=== PATIENT | male | born 1960 | race Caucasian/White ===

== ENCOUNTER → 2018-09-10 | Outpatient (CLI) | payer BC ==
--- NOTE | 2018-09-11 08:26 | CT ---
CT CHEST FOR PULMONARY EMBOLISM. EXAMINATION TYPE: CT angio chest DATE OF EXAM: 09/10/2018 INDICATION: Thoracic aortic aneurysm, without rupture. CT DLP: 518.3 mGycm, Automated exposure control for dose reduction was used. CONTRAST: Patient injected with 100ml mL of Isovue 370. COMPARISON: 06/12/2017 TECHNIQUE: CT of the chest is performed on a spiral scan at 2 mm thick sections. Study is performed with intravenous contrast timed for evaluation for the aorta. This will limit additional portions of the evaluation. 3-D MIP images reconstructed by the technologist are reviewed on the computer in th e coronal and sagittal planes. Three-D reconstructed images are performed through the thoracic aorta and proximal abdominal aorta. FINDINGS: Portion of the thyroid within the [id number] is unremarkable. No dissection is evident within the ascending or descending thoracic aorta. The aortic root at the le evette of the valve is 3.8 cm. The aorta level of the main pulmonary artery is 4.3 cm. Aortic arch has a transverse dimension of 3.1 cm. The descending thoracic aorta tapers through its visualized course. At the level of the diaphragm AP dimension of the descending thoracic aorta is 2.7 cm. No mediastinal or hilar adenopathy enlarged by CT criteria is evident. The ascending aorta diameter at the level of the main pulmonary artery is 4.3 cm. The main pulmonary artery diameter at the bifur cation is 2.9 cm. There is a three-vessel arch. Lung windows are essentially clear. Couple of streak opacities within the dependent portion of the ri ght lung base likely related to some mild atelectasis or scarring present previously. Limited CT section through the upper abdomen are unremarkable. IMPRESSIONS: 1. Stable ascending thoracic aortic aneurysm measuring 4.3 cm.
== END | disposition home or self-care (01) ==
LOC: RADCTMAIN 16:42
PROVIDERS: ATTEND Internal Medicine Interventional Cardiology
DX: I71.2 Thoracic aortic aneurysm, without rupture (principal)
CPT/HCPCS: 71275; Q9967

== ENCOUNTER → 2021-08-17 | Outpatient (CLI) | payer BC ==
--- NOTE | 2021-08-17 10:17 | CT ---
EXAMINATION TYPE: CT angio chest DATE OF EXAM: 08/17/2021 COMPARISON: 09/10/2018 HISTORY: 61-year-old male I71.2, thoracic aneurysm TECHNIQUE: Contiguous axial scanning of the chest performed without and with IV Contrast, patient inj ected with 100 mL of Isovue 370. Coronal/sagittal reconstructions performed. 3-D reconstructions gene rated on a dedicated independent workstation. CT DLP: 721.6 mGycm Automated exposure control for dose reduction was used. FINDINGS: Heart normal size without pericardial effusion. Aortic root aneurysmal at 4.6 cm, unchanged. There is cardiac motion which may be increasing this zac ue artifactually. Ascending aorta 4.0 cm, unchanged. Proximal arch ectatic at 3.8 cm, unchanged. Conventional arch vessel branching anatomy. Upper descending thoracic aorta ectatic and 3.5 cm, unchanged. Mid descending thoracic aorta 2.8 cm. Descending thoracic aorta at the thoracoabdominal junction borderline ectatic and 2.5 cm, unchanged. Initial noncontrast images show no evidence for acute intramural hematoma. There is no evidence for a ortic dissection. Large caliber to the main right and left pulmonary arteries are 3.0 and 2.7 cm, respectively, suggest ing underlying pulmonary hypertension. No thoracic lymphadenopathy by CT size criteria. Strandy scarring in the lower lungs. Minimal emphysematous change suspected in the upper lungs. No co nsolidation or pleural effusion. Stable 6 mm peripheral right lower lobe pulmonary nodule compatible with a benign etiology. Tiny hiatal hernia. Low attenuation of the hepatic parenchyma in the upper abdomen suggesting fatty i nfiltration. Bones: [facility] within the visualized lower thoracic spine. IMPRESSION: 1. STABLE ANEURYSMAL THORACIC AORTA (ROOT 4.6 CM, ASCENDING 4.0 CM, UPPER DESCENDING 3.5 CM). 2. SOME SCATTERED STRANDY SCARRING IN THE LUNGS. THERE MAY BE MINIMAL EMPHYSEMATOUS CHANGE IN THE UPP ER LUNGS. FINDINGS SUGGEST PULMONARY ARTERIAL HYPERTENSION. 3. TINY HIATAL HERNIA AND FATTY INFILTRATION OF THE LIVER.
== END | disposition home or self-care (01) ==
LOC: RADCTMAIN 08:49
PROVIDERS: ATTEND Internal Medicine Interventional Cardiology
DX: I71.2 Thoracic aortic aneurysm, without rupture (principal); K44.9 Diaphragmatic hernia without obstruction or gangrene; K76.0 Fatty (change of) liver, not elsewhere classified; R91.8 Other nonspecific abnormal finding of lung field
CPT/HCPCS: 71275; Q9967

== ENCOUNTER → 2022-04-28 | Outpatient (CLI) | payer BC ==
--- NOTE | 2022-04-28 10:26 | CT ---
EXAMINATION TYPE: CT angio chest DATE OF EXAM: 04/28/2022 COMPARISON: 08/17/2021 HISTORY: 62-year-old male I71.2, thoracic aortic aneurysm. TECHNIQUE: Contiguous axial scanning of the chest performed without and with IV Contrast, patient inj ected with 93mL mL of Isovue 370. Coronal/sagittal MIP reconstructions performed. 3-D reconstructions generated on a dedicated independent workstation. CT DLP: 887.8 mGycm Automated exposure control for dose reduction was used. FINDINGS: The heart is normal size without pericardial effusion. Aneurysmal aortic root at 4.7 cm, estimated at 4.6 cm, previously. Mild aneurysm ascending aorta 4.2 cm measured at 4.0 cm, previously. Proximal arch has a caliber of 4.3 cm versus 4.1 cm, previously. Upper descending thoracic aorta ectatic at 3.5 cm, unchanged. No evidence for aortic dissection. Initial noncontrast images show no evidence for acute intracranial hematoma. There is conventional arch vessel branching anatomy. Mildly enlarged caliber to the main right and left pulmonary arteries measuring up to 2.7 cm may refl ect underlying pulmonary hypertension. Trace bilateral gynecomastia. No thoracic lymphadenopathy by CT size criteria. Mild diffuse bronchial wall thickening. Minimal centrilobular emphysema. Mild bibasilar bronchiolecta sis. Strandy scarring in both lower lungs. No consolidation or pleural effusion. There appears to be a tiny hiatal hernia. Visualized upper abdomen suggest fatty infiltration of the liver. Correlate with LFTs, lipid profile, patient risk factors. Bones: DISH at the thoracolumbar junction with chronic mild anterior wedge deformity of L1 and accent uated kyphosis here. IMPRESSION: 1. ANEURYSMAL AORTIC ROOT AT 4.7 CM. ASCENDING AORTA AT 4.2 CM. PROXIMAL ARCH AT 4.3 CM. THESE MEASUR EMENTS ARE SIMILAR OR PERHAPS INCREASED BY 1 TO 2 MM ABOVE. UPPER DESCENDING THORACIC AORTA UNCHAN GED AT 3.5 CM. 2. COPD WITH MINIMAL EMPHYSEMA. BIBASILAR SCARRING. POSSIBLE UNDERLYING PULMONARY HYPERTENSION. 3. CORRELATE FOR HEPATIC STEATOSIS.
== END | disposition home or self-care (01) ==
LOC: RADCTMAIN 08:53
PROVIDERS: ATTEND Internal Medicine Interventional Cardiology
DX: I71.20 Thoracic aortic aneurysm, without rupture, unspecified (principal); J43.9 Emphysema, unspecified
CPT/HCPCS: 71275; Q9967

== ENCOUNTER → 2023-05-01 | Outpatient (CLI) | payer MEDICARE ==
[2023-05-01 08:46] LABS: African American GFR (CKD) >90 (>60 ml/min/1.73 sqM); Blood Urea Nitrogen 12 mg/dL (9-20); Non-African American GFR(CKD) >90 (>60 ml/min/1.73 sqM)
--- NOTE | 2023-05-01 09:35 | CT ---
EXAMINATION TYPE: CT angio chest CT DLP: 983 mGycm, Automated exposure control for dose reduction was used. DATE OF EXAM: 05/01/2023 9:21 AM COMPARISON: CT 04/28/2022. CLINICAL INDICATION:Male, 63 years old with history of I71.20 TAA without rupture; TECHNIQUE/CONTRAST: CTA scan of the thorax after injection of 100 cc Isovue 370 MIP images are created and reviewed these are created on a separate workstation. FINDINGS: Pulmonary Artery: There is no evidence for a filling defect within the pulmonary vasculature to sugge st acute pulmonary embolism. The pulmonary artery is of normal size. Lungs/Pleura: Streaky atelectasis in the lung bases. No evidence of focal consolidation, pleural effu luis enrique or pneumothorax. Airway: Large airways are patent. Heart: Heart is within normal limits for size. Vasculature: The ascending thoracic aorta measures up to 4.4 cm. The origins of the major vessels of the aortic arch are patent. The descending thoracic aorta is within normal limits for size. No eviden ce for filling defect cyst, embolus. No evidence for intramural hematoma on noncontrast imaging. No e vidence of intimal flap to suggest dissection. No aneurysm identified. Scattered atherosclerotic dise ase. Mediastinum: No gross evidence of adenopathy. Musculoskeletal: No acute osseous abnormalities Soft Tissues: Unremarkable. Lower neck: No significant findings. Upper Abdomen: No significant findings. IMPRESSION: 1. No evidence for aortic aneurysm, the ascending thoracic aorta is ectatic measuring up to 4.4 cm f indings stable from 04/28/2022. 2. No evidence for vascular occlusion, dissection or pulmonary embolus.
== END | disposition home or self-care (01) ==
LOC: RADCTMAIN 08:10
PROVIDERS: ATTEND Internal Medicine Interventional Cardiology
DX: I71.21 Aneurysm of the ascending aorta, without rupture (principal)
CPT/HCPCS: 82565; 84520; 71275; 36415; Q9967

== ENCOUNTER → 2023-10-01 | Outpatient (CLI) | payer MEDICARE ==
[2023-10-01 11:24] LABS: Basophils # (A) 0.05 X 10*3/uL (0.00-0.10); Eosinophils # (A) 0.23 X 10*3/uL (0.04-0.35); Eosinophils % (A) 4.4 %; HGB 14.9 g/dL (12.0-17.0); Lymphocytes # (A) 1.65 X 10*3/uL (0.90-5.00); Lymphocytes % (A) 31.9 %; MCH 31.6 pg (27.0-32.0); MCHC 33.1 g/dL (32.0-37.0); MCV 95.3 FL (80.0-97.0); Mean Platelet Volume 8.8 FL (9.5-12.2); Monocytes # (A) 0.44 X 10*3/uL (0.20-1.00); Monocytes % (A) 8.5 %; NRBC Per 100 WBC 0 X 10*3/uL (0.00-0.01); Neutrophils # (A) 2.79 X 10*3/uL (1.80-7.70); Platelet Count 214 X 10*3/uL (140-440); RBC 4.72 X 10*6/uL (4.10-5.60); WBC 5.17 X 10*3/uL (4.50-10.00)
[2023-10-01 18:50] LABS: Blood Urea Nitrogen 12.1 mg/dL (9.0-27.0); Chloride 105 mmol/L (96-109); Chol/HDL Ratio 2.94 Ratio; Glucose 109 mg/dL (70-110); LDL Cholesterol,Calculated 69.7 mg/dL (0.0-131.0); Potassium 4.2 mmol/L (3.5-5.5); Sodium 141 mmol/L (135-145); VLDL Calculation 18.02 mg/dL (5.00-40.00)
[2023-10-01 18:51] LABS: ALT 56 U/L (8-49); AST 31 U/L (13-35); Albumin 4.5 g/dL (3.8-4.9); Albumin/Globulin Ratio 2.05 Ratio (1.60-3.17); Alkaline Phosphatase 74 U/L (41-126); Calcium 9.4 mg/dL (8.7-10.3); Carbon Dioxide 25.4 mmol/L (21.6-31.8); Globulin 2.2 g/dL (1.6-3.3); Prostate Specific Antigen 7.95 ng/mL (0.000-4.500); Total Bilirubin 0.7 mg/dL (0.3-1.2); Total Protein 6.7 g/dL (6.2-8.2)
== END | disposition home or self-care (01) ==
LOC: LABWHC1 07:08
PROVIDERS: ATTEND Internal Medicine Geriatric Medicine
DX: I25.119 Atherosclerotic heart disease of native coronary artery with unspecified angina pectoris (principal); R97.20 Elevated prostate specific antigen [PSA]
CPT/HCPCS: 36415; 80053; 80061; 84153; 84443; 85025

== ENCOUNTER → 2023-12-17 | Outpatient (CLI) | payer MEDICARE ==
--- NOTE | 2023-12-18 08:41 | PE ---
EXAMINATION TYPE: PET CT fusion skull to thigh DATE OF EXAM: 12/17/2023 CLINICAL INDICATION:Male, 63 years old with history of C61 prostate ca; TECHNIQUE: Following the intravenous administration of 5.61 mCi of Ga-68 Illuccix (PSMA), whole bod y images are performed from the skull base to the midthigh. Images are reviewed on the computer in t he coronal, axial, and sagittal planes. Reconstructed rotating images are created on independent wor kstation and reviewed on the computer. A non-contrast CT is performed in conjunction with the PET s can. CT DLP: 745 mGycm, Automated exposure control for dose reduction was used. COMPARISON: CT 05/02/2024, PET/CT none, FINDINGS: Mediastinal SUV mean is 1.7. Hepatic parenchyma SUV mean is 5.8. SKULL BASE AND NECK: No suspicious radiotracer activity. CHEST, MEDIASTINUM, AND HILAR REGION: No suspicious radiotracer activity. ABDOMEN AND PELVIS: Focal radiotracer uptake within the prostate gland involving the left posterior lateral peripheral zo ne and right posterior lateral peripheral zone near the apex and along the right lateral peripheral z one max SUV on the right 12.0 and on the left 18.1. No suspicious uptake outside the prostate gland. MUSCULOSKELETAL STRUCTURES: No suspicious radiotracer activity. OTHER CT: Atherosclerosis of the carotid bifurcations the heart is mildly enlarged for size. Few scat tered colonic diverticula. The prostate gland is enlarged for size. IMPRESSION: At least 2 areas of abnormal uptake within the prostate gland most suspicious for primary prostatic a denocarcinoma. No evidence for metastatic disease at this time.
== END | disposition home or self-care (01) ==
LOC: RADPETMAIN 08:23
PROVIDERS: ATTEND Urology
DX: C61 Malignant neoplasm of prostate (principal)
CPT/HCPCS: 78815; A9596

== ENCOUNTER 2024-01-31 10:58 | Day surgery (SDC) | payer MEDICARE ==
[2024-01-29 15:55] VITALS: BMI 27.5
--- NOTE | 2024-01-30 23:02 | P.GSHP ---
History of Present Illness H&P Date: 01/30/24 Chief Complaint: Prostate cancer Patient is a 64-year-old white male recently evaluated for an elevated PSA level of 6.5. NUBIA revealed left apical firmness as well as firmness at the right prostatic base. Prostate ultrasound revealed a prostate volume of 36 cc, with no echogenic abnormalities. 3 of 12 biopsies showed evidence of prostate cancer, two Soldier 7 and one Dara 9. Metastatic evaluation was negative. The patient was offered the options of surgery versus radiation therapy. He has elected to undergo the latter, in conjunction with androgen deprivation therapy. He now comes for SpaceOAR implant to reduce the risk of rectal toxicity. - Cardiovascular Cardiovascular: Reports high blood pressure - Genitourinary (Male) Genitourinary: Reports urinary frequency Past Medical History Past Medical History: Asthma, Cancer, GERD/Reflux, Hyperlipidemia, Hypertension Additional Past Medical History / Comment(s): prostate CA, adult onset asthma History of Any Multi-Drug Resistant Organisms: None Reported Past Surgical History: Orthopedic Surgery, Tonsillectomy Additional Past Surgical History / Comment(s): RT DETACHED RETINA SX. COLONOSCOPY. LEFT KNEE SURGERY. HAND SURGERIES Past Anesthesia/Blood Transfusion Reactions: No Reported Reaction Past Psychological History: No Psychological Hx Reported Smoking Status: Never smoker Past Alcohol Use History: Occasional Past Drug Use History: None Reported - Past Family History Mother Family Medical History: Cancer Additional Family Medical History / Comment(s): BREAST Brother(s) Family Medical History: Cancer Additional Family Medical History / Comment(s): PROSTATE Medications and Allergies Home Medications Medication Instructions Recorded Confirmed Type Atorvastatin [Lipitor] 20 mg PO DAILY 06/27/16 01/29/24 History Metoprolol Tartrate [Lopressor] 25 mg PO BID 06/27/16 01/29/24 History Multivitamins, Thera [Multivitamin] 1 each PO DAILY 06/27/16 01/29/24 History Omeprazole [PriLOSEC] 20 mg PO DAILY 06/27/16 01/29/24 History Fluticasone/Umeclidin/Vilanter 1 puff INHALATION DAILY 01/29/24 01/29/24 History [Trelegy Ellipta 200-62.5-25] Allergies Allergy/AdvReac Type Severity Reaction Status Date / Time No Known Allergies Allergy Verified 01/29/24 15:45 Surgical - Exam - General well developed, well nourished, no distress - Respiratory normal respiratory effort - Abdomen Abdomen: soft, non tender, no guarding, no rigid, no rebound - Genitourinary normal penis with no external lesions, testicles non-tender - Rectum Rectum: normal sphincter tone, no masses, other (Prostate moderately enlarged, with left mid gland prominence and right base firmness.) - Psychiatric oriented to time, oriented to person, oriented to place, speech is normal, memory intact Assessment and Plan (1) Malignant neoplasm of prostate Status: Acute Code(s): C61 - MALIGNANT NEOPLASM OF PROSTATE SNOMED Code(s): 725661395 Plan: The SpaceOar implant has been reviewed in detail with the patient. He understands that the rationale for this is to create separation between the prostate and rectum, thus reducing the risk of radiation proctitis. The material begins to breakdown 12-13 weeks following implant, and is reabsorbed by the body. Risks include anesthesia, bleeding, infection, and perineal discomfort. He understands that if the rectal wall is perforated the procedure will need to be aborted.
[2024-01-31] MEDS: IV FLUID CONTINUATION 1,000 ML IV ONE ×2 (13:30→14:42)
[2024-01-31 13:36] VITALS: RESP 16; TEMP 97.9
[2024-01-31] MEDS: LACTATED RINGERS 1,000 ML IV SCH (13:41)
[2024-01-31] MEDS ORDERED: fentaNYL (PF) 50 MCG/ML 2 ML AMP ONE (14:15)
[2024-01-31] MEDS ORDERED: PROPOFOL 10 MG/ML 20 ML VIAL IV ONE (14:15)
[2024-01-31] MEDS ORDERED: KETAMINE HCL IN 0.9 % NACL 50 MG/5 ML SYRINGE ONE (14:15)
[2024-01-31] MEDS ORDERED: MIDAZOLAM 2 MG/2 ML VIAL ONE (14:15)
[2024-01-31] MEDS: LIDOCAINE 2% INJ 20 MG/ML SQ ONE (14:30)
--- NOTE | 2024-01-31 14:46 | P.OP ---
Date of Procedure: 01/31/24 Preoperative Diagnosis: Adenocarcinoma of the prostate Postoperative Diagnosis: Same Procedure(s) Performed: SpaceOAR implant Anesthesia: MAC Surgeon: Moise Freitas Estimated Blood Loss (ml): 5 IV fluids (ml): 300 Pathology: none sent Condition: stable Disposition: PACU Indications for Procedure: Patient is a 64-year-old white male recently evaluated for an elevated PSA level of 6.5. NUBIA revealed left apical firmness as well as firmness at the right p rostatic base. Prostate ultrasound revealed a prostate volume of 36 cc, with no echogenic abnormalities. 3 of 12 biopsies showed evidence of prostate cancer, two Dara 7 and one Dara 9. Metastatic evaluation was negative. The patient was offered the options of surgery versus radiation therapy. He has elected to undergo the latter, in conjunction with androgen deprivation therapy. He now comes for SpaceOAR implant to reduce the risk of rectal toxicity. Operative Findings: 12 mm separation created between prostate and rectum. Description of Procedure: The patient was taken to the operating room and placed in the dorsolithotomy position, with his legs supported in Vikas stirrups. The external genitalia was prepped and draped sterilely. The Intercasting transrectal ultrasound probe was placed intrarectally. The prostate was imaged. The probe was then placed within the stabilizing stand. A spinal needle was advanced under ultrasonic guidance to the level of the urogenital diaphragm, and lidocaine was used to infiltrate the tissues as the needle was withdrawn. Next, the SpaceOAR needle was passed through the midline of the perineum, 1-2 cm anterior to the anal opening. The needle was slowly advanced under ultrasonic guidance until the needle tip was located within the fat plane between the prostate and rectum, at the level of the mid prostate gland. The needle was confirmed to be midline on the axial imaging. A small amount of normal saline was injected for hydrodissection. Next, the SpaceOAR components were mixed and loaded into the Y connector per protocol. The Y connector was then connected to the needle, and the components were injected slowly over a course of approximately 12 seconds. A total of 10 ml was injected. Significant distance was created between the prostate and rectum, as desired (12.2 mm). It should be noted that at no point was there any concern of rectal perforation. The needle was withdrawn, as well as the transrectal ultrasound probe, and the procedure was terminated. The patient tolerated the procedure well and was taken to the recovery room in stable condition.
[2024-01-31 15:07] VITALS: BP 146/85; PULSE 58
== END 2024-01-31 15:15 | disposition home or self-care (01) ==
LOC: OR 10:58
PROVIDERS: ATTEND Urology
DX: K21.9 Gastro-esophageal reflux disease without esophagitis (principal); I10 Essential (primary) hypertension; J45.909 Unspecified asthma, uncomplicated; E78.5 Hyperlipidemia, unspecified; Z85.46 Personal history of malignant neoplasm of prostate; Z90.89 Acquired absence of other organs; Z86.59 Personal history of other mental and behavioral disorders; Z80.3 Family history of malignant neoplasm of breast; Z79.02 Long term (current) use of antithrombotics/antiplatelets; Z79.899 Other long term (current) drug therapy
CPT/HCPCS: 55876; C1889; J2001; J2250; J3010; J2704

== ENCOUNTER → 2024-03-17 | Outpatient (CLI) | payer MEDICARE | END | disposition home or self-care (01) | LOC: LABWHC1 11:42 | PROVIDERS: ATTEND Radiology Radiation Oncology | DX: Z00.6 Encounter for examination for normal comparison and control in clinical research program (principal); C61 Malignant neoplasm of prostate; Z80.42 Family history of malignant neoplasm of prostate | CPT/HCPCS: 36415; 84443; 84481 ==

== ENCOUNTER → 2024-05-20 | Outpatient (CLI) | payer MEDICARE ==
[2024-05-21 03:42] LABS: Basophils # (A) 0.04 X 10*3/uL (0.00-0.10); Basophils % (A) 0.9 %; Eosinophils # (A) 0.32 X 10*3/uL (0.04-0.35); Eosinophils % (A) 7.5 %; HCT 35.9 % (37.2-50.0); HGB 12.1 g/dL (12.0-17.0); Lymphocytes # (A) 0.46 X 10*3/uL (0.90-5.00); Lymphocytes % (A) 10.8 %; MCH 33.4 pg (27.0-32.0); MCHC 33.7 g/dL (32.0-37.0); MCV 99.2 FL (80.0-97.0); Mean Platelet Volume 9.4 FL (9.5-12.2); Monocytes # (A) 0.54 X 10*3/uL (0.20-1.00); Monocytes % (A) 12.6 %; NRBC Per 100 WBC 0 X 10*3/uL (0.00-0.01); Neutrophils # (A) 2.89 X 10*3/uL (1.80-7.70); Neutrophils % (A) 67.7 %; Platelet Count 308 X 10*3/uL (140-440); RBC 3.62 X 10*6/uL (4.10-5.60); RDW 13.2 % (11.5-14.5); WBC 4.27 X 10*3/uL (4.50-10.00)
[2024-05-21 04:10] LABS: Prostate Specific Antigen 0.03 ng/mL (0.000-4.500)
[2024-05-21 04:36] LABS: ALT 20 U/L (8-49); AST 22 U/L (13-35); Albumin 4.5 g/dL (3.8-4.9); Albumin/Globulin Ratio 2.05 Ratio (1.60-3.17); Alkaline Phosphatase 64 U/L (41-126); BUN/Creat Ratio 17.11 Ratio (12.00-20.00); Blood Urea Nitrogen 15.4 mg/dL (9.0-27.0); Calcium 9.5 mg/dL (8.7-10.3); Chloride 104 mmol/L (96-109); Globulin 2.2 g/dL (1.6-3.3); Glucose 108 mg/dL (70-110); Potassium 3.9 mmol/L (3.5-5.5); Sodium 141 mmol/L (135-145); Testosterone <10.00 ng/dL (7.00-780.10); Total Bilirubin <0.2 mg/dL (0.3-1.2); Total Protein 6.7 g/dL (6.2-8.2)
== END | disposition home or self-care (01) ==
LOC: LABWHC1 16:30
PROVIDERS: ATTEND Radiology Radiation Oncology
DX: Z00.6 Encounter for examination for normal comparison and control in clinical research program (principal); C61 Malignant neoplasm of prostate; Z80.42 Family history of malignant neoplasm of prostate
CPT/HCPCS: 36415; 80053; 84153; 84403; 84443; 85025

== ENCOUNTER → 2024-06-10 | Outpatient (CLI) | payer MEDICARE ==
[2024-06-10 07:37] LABS: African American GFR (CKD) >90 (>60 ml/min/1.73 sqM); Blood Urea Nitrogen 14 mg/dL (9-20); Non-African American GFR(CKD) >90 (>60 ml/min/1.73 sqM)
--- NOTE | 2024-06-10 09:45 | CT ---
EXAMINATION TYPE: CT angio chest CT DLP: 694.0 mGycm, Automated exposure control for dose reduction was used. DATE OF EXAM: 06/10/2024 8:50 AM COMPARISON: PET CT 12/17/2023, multiple CTA chest with most recent 05/01/2023 CLINICAL INDICATION:Male, 64 years old with history of I71.20 THORACIC ANEURYSM; thoracic aneurysm f/ u TECHNIQUE/CONTRAST: CTA scan of the thorax is performed without and with IV Contrast, patient injected with 100 mL of Iso devang 370. 3D reconstructed images are created on an independent workstation and reviewed.. FINDINGS: Lungs/Pleura: No evidence of focal consolidation, pleural effusion or pneumothorax. Minimal centrilo bular emphysematous changes. Mild bibasilar bronchiolectasis stranding scarring in both lower lungs. Airway: Large airways are patent. Heart: Heart is within normal limits for size. No pericardial effusion. Vasculature: Conventional arch vessel branching anatomy. No evidence for intramural hematoma or disse ction. Marginal increase in size of the aneurysmal aortic root measuring up to 5.0 cm, previously 4.7 cm. Stable mild aneurysm of the ascending thoracic aorta measuring up to 4.2 cm, previously 4.2 cm. Stable proximal arch caliber measuring up to 4.2 cm, previously 4.3 cm. Stable ectasia of the upper d escending thoracic aorta measuring up to 3.4 cm, previously 3.5 cm. Normal caliber pulmonary artery. No filling defect to suggest pulmonary embolus. Mediastinum: No evidence of adenopathy. Musculoskeletal: No acute osseous abnormalities. DISH at the thoracolumbar junction with chronic mild anterior wedge deformity of L1 and accentuated kyphosis here. Soft Tissues: Trace bilateral gynecomastia. Lower neck: No significant findings. Upper Abdomen: Diffuse hypoattenuation of the liver consistent with fatty infiltration. Stable right hepatic dome subcentimeter enhancing focus likely representing a vascular shunt or flash filling lupe ngioma. IMPRESSION: Marginal increase in size aneurysmal aortic root measuring up to 5.0 cm, previously 4.7 cm. Stable an eurysm dilatation ascending thoracic aorta measured 4.2 cm. Stable ectasia of the descending thoracic aorta measuring up to 3.4 cm. No evidence for intramural hematoma or dissection of the thoracic aort a. [facility], , 06/10/2024 9:43 AM
== END | disposition home or self-care (01) ==
LOC: RADCTMAIN 07:00
PROVIDERS: ATTEND Internal Medicine Interventional Cardiology
DX: I71.21 Aneurysm of the ascending aorta, without rupture (principal); K76.0 Fatty (change of) liver, not elsewhere classified; N62 Hypertrophy of breast; J47.9 Bronchiectasis, uncomplicated
CPT/HCPCS: 82565; 84520; 71275; 36415; Q9967

== ENCOUNTER → 2024-11-12 | Outpatient (CLI) | payer MEDICARE ==
[2024-11-12 15:17] LABS: Basophils # (A) 0.03 X 10*3/uL (0.00-0.10); Basophils % (A) 0.9 %; Eosinophils # (A) 0.16 X 10*3/uL (0.04-0.35); HCT 37.5 % (37.2-50.0); HGB 12.8 g/dL (12.0-17.0); Lymphocytes % (A) 24.8 %; MCH 33.2 pg (27.0-32.0); MCHC 34.1 g/dL (32.0-37.0); MCV 97.4 FL (80.0-97.0); Mean Platelet Volume 9.2 FL (9.5-12.2); Monocytes # (A) 0.38 X 10*3/uL (0.20-1.00); Monocytes % (A) 11.8 %; NRBC Per 100 WBC 0 X 10*3/uL (0.00-0.01); Neutrophils # (A) 1.84 X 10*3/uL (1.80-7.70); Neutrophils % (A) 57.2 %; Platelet Count 224 X 10*3/uL (140-440); RBC 3.85 X 10*6/uL (4.10-5.60); RDW 12.9 % (11.5-14.5); WBC 3.22 X 10*3/uL (4.50-10.00)
[2024-11-12 15:40] LABS: ALT 21 U/L (8-49); AST 23 U/L (13-35); Albumin 4.3 g/dL (3.8-4.9); Albumin/Globulin Ratio 2.05 Ratio (1.60-3.17); Alkaline Phosphatase 68 U/L (41-126); BUN/Creat Ratio 19.25 Ratio (12.00-20.00); Blood Urea Nitrogen 15.4 mg/dL (9.0-27.0); Calcium 9.4 mg/dL (8.7-10.3); Chloride 102 mmol/L (96-109); Globulin 2.1 g/dL (1.6-3.3); Glucose 103 mg/dL (70-110); Potassium 4.1 mmol/L (3.5-5.5); Sodium 139 mmol/L (135-145); Testosterone <10.00 ng/dL (7.00-780.10); Total Bilirubin 0.3 mg/dL (0.3-1.2); Total Protein 6.4 g/dL (6.2-8.2)
[2024-11-12 15:43] LABS: Prostate Specific Antigen <0.01 ng/mL (0.000-4.500)
== END | disposition home or self-care (01) ==
LOC: LABWHC1 09:55
PROVIDERS: ATTEND Radiology Radiation Oncology
DX: Z00.6 Encounter for examination for normal comparison and control in clinical research program (principal); C61 Malignant neoplasm of prostate; Z80.42 Family history of malignant neoplasm of prostate
CPT/HCPCS: 36415; 80053; 84153; 84403; 85025

== ENCOUNTER → 2025-01-28 | Outpatient (CLI) | payer MEDICARE ==
[2025-01-28 15:57] LABS: Basophils # (A) 0.04 X 10*3/uL (0.00-0.10); Basophils % (A) 1.2 %; Eosinophils # (A) 0.15 X 10*3/uL (0.04-0.35); Eosinophils % (A) 4.4 %; HCT 39.9 % (37.2-50.0); HGB 12.9 g/dL (12.0-17.0); Immature Grans, Automated 0.30 %; Lymphocytes # (A) 0.82 X 10*3/uL (0.90-5.00); Lymphocytes % (A) 23.8 %; MCH 32.0 pg (27.0-32.0); MCHC 32.3 g/dL (32.0-37.0); MCV 99.0 FL (80.0-97.0); Monocytes # (A) 0.38 X 10*3/uL (0.20-1.00); Monocytes % (A) 11.0 %; NRBC Per 100 WBC 0 X 10*3/uL (0.00-0.01); Neutrophils # (A) 2.04 X 10*3/uL (1.80-7.70); Neutrophils % (A) 59.3 %; Platelet Count 239 X 10*3/uL (140-440); RBC 4.03 X 10*6/uL (4.10-5.60); RDW 12.5 % (11.5-14.5); WBC 3.44 X 10*3/uL (4.50-10.00)
[2025-01-28 16:11] LABS: ALT 22 U/L (8-49); AST 25 U/L (13-35); Albumin 4.3 g/dL (3.8-4.9); Albumin/Globulin Ratio 2.69 Ratio (1.60-3.17); Alkaline Phosphatase 65 U/L (41-126); Anion Gap 12.30 mmol/L (4.00-12.00); BUN/Creat Ratio 16.11 Ratio (12.00-20.00); Blood Urea Nitrogen 14.5 mg/dL (9.0-27.0); Calcium 9.0 mg/dL (8.7-10.3); Carbon Dioxide 22.7 mmol/L (21.6-31.8); Chloride 104 mmol/L (96-109); Globulin 1.6 g/dL (1.6-3.3); Glucose 101 mg/dL (70-110); Potassium 4.2 mmol/L (3.5-5.5); Sodium 139 mmol/L (135-145); Total Protein 5.9 g/dL (6.2-8.2)
[2025-01-28 16:16] LABS: Prostate Specific Antigen <0.01 ng/mL (0.000-4.500)
== END | disposition home or self-care (01) ==
LOC: LABWHC1 09:20
PROVIDERS: ATTEND Radiology Radiation Oncology
DX: Z00.6 Encounter for examination for normal comparison and control in clinical research program (principal); C61 Malignant neoplasm of prostate; Z80.42 Family history of malignant neoplasm of prostate
CPT/HCPCS: 36415; 80053; 84153; 84403; 84443; 85025